=== PATIENT | male | born 1935 | race Caucasian/White ===

== ENCOUNTER 2023-09-15 16:11 | Emergency (ER) | payer MEDICARE | END 2023-09-15 18:20 | disposition home or self-care (01) | LOC: CSHERS 16:11 | DX: S60.412A Abrasion of right middle finger, initial encounter (principal); I10 Essential (primary) hypertension; X58.XXXA Exposure to other specified factors, initial encounter | CPT/HCPCS: 99283 ==

== ENCOUNTER 2023-10-10 09:19 | Observation (INO) | payer MEDICARE ==
[2023-10-10] MEDS ORDERED: Metoprolol Tartrate 5 MG (5 mL) VIAL ONE (09:47)
[2023-10-10 09:52] LABS: #Eosinphils 0.1 10x3/uL (0.0-0.5); #Monocytes 0.4 10x3/uL (0.0-1.1); #Neutrophils 3.1 10x3/uL (1.5-8.4); %Basophils 0.8 % (0.0-2.0); %Eosinophils 1.4 % (0.0-6.0); %Lymphocytes 26.5 % (18.0-47.0); %Monocytes 7.3 % (0.0-10.0); %Neutrophils 63.6 % (40.0-75.0); Hemoglobin 15.5 g/dL (13.5-17.5); Mean Corpuscular HGB CONC 34.4 g/dL (32.0-36.0); Mean Corpuscular Hemoglobin 28.2 pg (27.0-33.0); Mean Corpuscular Volume 81.8 fl (81.2-95.1); Platelet Count 256 10x3/uL (150-450); RBC Distribution Width 13.7 % (11.5-14.5); White Blood Cell (WBC) Count 4.9 10x3/uL (3.5-10.5)
[2023-10-10 10:25] LABS: ALT (SGPT) 22 U/L (8-55); AST (SGOT) 21 U/L (5-34); Albumin 4.3 g/dL (3.4-4.8); Alkaline Phosphatase 74 U/L (40-110); Anion Gap 18 mmol/L (10-20); BUN (Urea Nitrogen) 14 mg/dL (8.4-25.7); Bilirubin, Total 0.7 mg/dL (0.2-1.2); Calc. Creatinine Clearance 0 mL/min (70-130); Calcium 9.3 mg/dL (7.8-10.44); Carbon Dioxide 21 mmol/L (23-31); Chloride 101 mmol/L (98-107); Estimated GFR 83; Globulin 2.2 g/dL (2.4-3.5); Glucose 180 mg/dL (83-110); Potassium 3.7 mmol/L (3.5-5.1); Protein, Total 6.5 g/dL (5.8-8.1); Sodium 136 mmol/L (136-145)
[2023-10-10 10:31] LABS: Troponin I Less than 0.010 ng/mL (< 0.028)
[2023-10-10 11:10] LABS: Magnesium 1.7 mg/dL (1.6-2.6)
[2023-10-10] MEDS ORDERED: Amiodarone 150 MG/3 ML VIAL ONE ×2 (12:16→13:19)
[2023-10-10] MEDS ORDERED: Acetaminophen 325 MG TAB PO PRN (13:44)
[2023-10-10] MEDS ORDERED: Ondansetron PF 4 MG/2 ML Vial IVP PRN (13:44)
[2023-10-10] MEDS ORDERED: Ondansetron ODT 4 MG TAB PO PRN (13:44)
[2023-10-10] MEDS ORDERED: Electrolyte Replacement Protocol 1 EACH FS SCH (13:45)
[2023-10-10] MEDS ORDERED: Magnesium 2 GM/50 ML(in water) 2 GM in Premix 1 BAG IVPB SCH (14:00)
[2023-10-10 14:11] LABS: Troponin I 0.021 ng/mL (< 0.028)
[2023-10-10] MEDS: Magnesium 2 GM/50 ML(in water) 2 GM in Premix 1 BAG IVPB SCH ×2 (15:00→18:39)
[2023-10-10] MEDS: Dicyclomine 10 MG CAP PO SCH (15:25)
[2023-10-10] MEDS ORDERED: Magnesium 2 GM/50 ML BAG (IN WATER) ONE (16:09)
[2023-10-10] MEDS ORDERED: Electrolyte Replacement Protocol FS PRN (16:45)
[2023-10-10] MEDS ORDERED: Pancrelipase DR 12,000 1 CAP PO PRN (16:46)
[2023-10-10] MEDS ORDERED: Pancrelipase DR 12,000 1 CAP PO SCH (17:00)
[2023-10-10] MEDS: Amiodarone In Dextrose 150 MG in Premix 1 BAG IVPB SCH (17:35)
[2023-10-10] MEDS: Pancrelipase DR 12,000 1 CAP PO SCH (17:52)
[2023-10-10] MEDS: Magnesium Sulfate 4 GM in Sodium Chloride 0.9% 250 ML 250 ML IVPB SCH (18:07)
[2023-10-10 18:13] VITALS: BMI 34.0
[2023-10-10 18:21] LABS: Troponin I 0.023 ng/mL (< 0.028)
[2023-10-10] MEDS ORDERED: Amiodarone In Dextrose 360 MG in Premix 1 BAG IVPB SCH (19:30)
[2023-10-10] MEDS: Tamsulosin HCl 0.4 MG CAP PO SCH (20:46)
[2023-10-10] MEDS: Apixaban 5 MG TAB PO SCH (20:46)
[2023-10-10] MEDS: Amiodarone 200 MG TAB PO SCH (21:23)
[2023-10-10] MEDS: Lorazepam 1 MG TAB PO PRN (21:25)
[2023-10-11 03:52] LABS: #Basophils 0.1 10x3/uL (0.0-0.2); #Eosinphils 0.1 10x3/uL (0.0-0.5); #Monocytes 0.7 10x3/uL (0.0-1.1); #Neutrophils 3.7 10x3/uL (1.5-8.4); %Basophils 1.1 % (0.0-2.0); %Eosinophils 1.7 % (0.0-6.0); %Lymphocytes 27.5 % (18.0-47.0); %Monocytes 11.2 % (0.0-10.0); %Neutrophils 58.3 % (40.0-75.0); Hematocrit 39.5 % (38.8-50.0); Hemoglobin 13.7 g/dL (13.5-17.5); Mean Corpuscular HGB CONC 34.7 g/dL (32.0-36.0); Mean Corpuscular Hemoglobin 28.4 pg (27.0-33.0); Mean Corpuscular Volume 81.8 fl (81.2-95.1); Mean Platelet Volume 8.5 fl (7.4-10.4); Platelet Count 225 10x3/uL (150-450); RBC Distribution Width 13.6 % (11.5-14.5); Red Blood Cell (RBC) Count 4.83 10x6/uL (4.32-5.72); White Blood Cell (WBC) Count 6.3 10x3/uL (3.5-10.5)
[2023-10-11 04:02] LABS: Anion Gap 14 mmol/L (10-20); BUN (Urea Nitrogen) 14 mg/dL (8.4-25.7); Calc. Creatinine Clearance 101 mL/min (70-130); Carbon Dioxide 26 mmol/L (23-31); Chloride 100 mmol/L (98-107); Estimated GFR 85; Glucose 130 mg/dL (83-110); Potassium 3.7 mmol/L (3.5-5.1); Sodium 136 mmol/L (136-145)
[2023-10-11] MEDS: Magnesium 2 GM/50 ML(in water) 2 GM in Premix 1 BAG IVPB SCH (06:09)
[2023-10-11] MEDS: Allopurinol 100 MG TAB PO SCH (07:27)
[2023-10-11] MEDS: Hydrochlorothiazide 25 MG TAB PO SCH (08:13)
[2023-10-11] MEDS: Tamsulosin HCl 0.4 MG CAP PO SCH (08:13)
[2023-10-11 11:20] VITALS: BP 121/72; TEMP 98.9
== END 2023-10-11 12:00 | disposition home or self-care (01) ==
LOC: CSHERS 09:19 → CSHERHOLD 12:25 → CSHIMCU 17:36
PROVIDERS: ADMIT Family Medicine; ATTEND Internal Medicine
DX: I48.0 Paroxysmal atrial fibrillation (principal); I48.19 Other persistent atrial fibrillation; I08.0 Rheumatic disorders of both mitral and aortic valves; I10 Essential (primary) hypertension; E83.41 Hypermagnesemia; N40.0 Benign prostatic hyperplasia without lower urinary tract symptoms; Z88.1 Allergy status to other antibiotic agents; Z79.01 Long term (current) use of anticoagulants; Z79.899 Other long term (current) drug therapy
CPT/HCPCS: 71045; 80048; 80053; 83735 ×2; 83880; 84484 ×2; 85025 ×2; 93005 ×2; 93306; 94760; 96365; 96366; 96375; 96376; 99285; G0378; 36415; 93010; J0282; J3475

== ENCOUNTER 2023-10-16 07:29 | Emergency (ER) | payer MEDICARE, OTHER ==
[2023-10-16] MEDS ORDERED: Lidocaine 1% w/Epinephrine 1:200K 30 ML VIAL ONE (08:37)
[2023-10-16] MEDS ORDERED: Bacitracin 1 PK ONE (08:38)
[2023-10-16 09:17] LABS: #Basophils 0.1 10x3/uL (0.0-0.2); #Eosinphils 0.1 10x3/uL (0.0-0.5); #Monocytes 0.8 10x3/uL (0.0-1.1); #Neutrophils 4.3 10x3/uL (1.5-8.4); %Basophils 1.2 % (0.0-2.0); %Eosinophils 0.9 % (0.0-6.0); %Lymphocytes 20.4 % (18.0-47.0); %Monocytes 11.4 % (0.0-10.0); %Neutrophils 65.8 % (40.0-75.0); Hematocrit 42.9 % (38.8-50.0); Hemoglobin 14.8 g/dL (13.5-17.5); Mean Corpuscular HGB CONC 34.5 g/dL (32.0-36.0); Mean Corpuscular Hemoglobin 28.1 pg (27.0-33.0); Mean Corpuscular Volume 81.6 fl (81.2-95.1); Mean Platelet Volume 8.8 fl (7.4-10.4); Platelet Count 265 10x3/uL (150-450); RBC Distribution Width 13.6 % (11.5-14.5); Red Blood Cell (RBC) Count 5.26 10x6/uL (4.32-5.72); White Blood Cell (WBC) Count 6.6 10x3/uL (3.5-10.5)
[2023-10-16 09:37] LABS: ALT (SGPT) 25 U/L (8-55); AST (SGOT) 20 U/L (5-34); Albumin 4.2 g/dL (3.4-4.8); Alkaline Phosphatase 73 U/L (40-110); Anion Gap 13 mmol/L (10-20); BUN (Urea Nitrogen) 13 mg/dL (8.4-25.7); Bilirubin, Total 0.6 mg/dL (0.2-1.2); Calc. Creatinine Clearance 0 mL/min (70-130); Calcium 9.4 mg/dL (7.8-10.44); Carbon Dioxide 28 mmol/L (23-31); Chloride 98 mmol/L (98-107); Estimated GFR 83; Globulin 2.4 g/dL (2.4-3.5); Glucose 124 mg/dL (83-110); Protein, Total 6.6 g/dL (5.8-8.1); Sodium 135 mmol/L (136-145)
== END 2023-10-16 10:01 | disposition home or self-care (01) ==
LOC: CSHERS 07:29
DX: S09.90XA Unspecified injury of head, initial encounter (principal); S51.011A Laceration without foreign body of right elbow, initial encounter; S50.01XA Contusion of right elbow, initial encounter; R22.1 Localized swelling, mass and lump, neck; I48.91 Unspecified atrial fibrillation; I10 Essential (primary) hypertension; C61 Malignant neoplasm of prostate; K92.9 Disease of digestive system, unspecified; W22.8XXA Striking against or struck by other objects, initial encounter; Y92.000 Kitchen of unspecified non-institutional (private) residence as the place of occurrence of the external cause
CPT/HCPCS: 12001; 36415; 70450; 72125; 80053; 85025; 93005

== ENCOUNTER 2025-05-10 08:43 | Outpatient (CLI) | payer MEDICARE ==
[2025-05-10 09:23] LABS: Estimated GFR - POC 65.0
== END 2025-05-10 08:44 | disposition home or self-care (01) ==
LOC: CSHMRI 08:43
PROVIDERS: ATTEND Internal Medicine Gastroenterology
DX: R10.9 Unspecified abdominal pain (principal); K58.0 Irritable bowel syndrome with diarrhea; K86.89 Other specified diseases of pancreas; Z86.0100 Personal history of colon polyps, unspecified; R93.5 Abnormal findings on diagnostic imaging of other abdominal regions, including retroperitoneum; K86.2 Cyst of pancreas; N28.1 Cyst of kidney, acquired; K76.0 Fatty (change of) liver, not elsewhere classified
CPT/HCPCS: 36415; 74183; 82565